=== PATIENT | male | born 1950 ===

== ENCOUNTER 2023-04-22 04:23 | Day surgery (SDC) | payer OTHER ==
[2023-04-21 12:52] VITALS: BMI 23.9
[2023-04-22] MEDS ORDERED: LIDOCAINE HCL 1%, 10 MG/ML (10ML VIAL) MDV ONE (08:13)
[2023-04-22] MEDS ORDERED: BUPIVACAINE HCL/PF 0.5% (5MG/ML) 10 ML VIAL ONE (08:13)
[2023-04-22] MEDS ORDERED: ONDANSETRON 4 MG/2 ML VIAL IVPUSH PRN ×2 (08:48→10:53)
[2023-04-22] MEDS ORDERED: PROMETHAZINE HCL 25 MG/1 ML VIAL IVPB PRN (08:48)
[2023-04-22] MEDS ORDERED: LACTATED RINGERS SOLUTION 1,000 ML IV SCH ×2 (09:00→11:00)
[2023-04-22] MEDS ORDERED: SUCCINYLCHOLINE CHLORIDE 200 MG/10 ML SYRINGE ONE (09:09)
[2023-04-22] MEDS ORDERED: PROPOFOL 40 ML ONE (09:09)
[2023-04-22] MEDS ORDERED: ceFAZolin SODIUM 1 GM VIAL IVPB ONE (09:20)
[2023-04-22] MEDS ORDERED: BUPIVACAINE HCL/PF 0.5% (5 MG/ML) 30 ML VIAL IJ ONE (09:31)
[2023-04-22] MEDS ORDERED: LIDOCAINE HCL 1%, 10 MG/ML (50 mL VIAL) INF ONE (09:31)
[2023-04-22] MEDS ORDERED: oxyCODONE HCL 5 MG TABLET PO PRN (10:53)
[2023-04-22 12:08] VITALS: TEMP 97
[2023-04-22 12:13] VITALS: BP 154/78; PULSE 69; RESP 20
== END 2023-04-22 12:30 | disposition home or self-care (01) ==
LOC: JASU-SURG 04:23
PROVIDERS: ATTEND Orthopaedic Surgery
PROC: 0LB50ZZ Excision of Right Lower Arm and Wrist Tendon, Open Approach (ICD-10-PCS; 2023-04-22)
PROC: 01N50ZZ Release Median Nerve, Open Approach (ICD-10-PCS; principal; 2023-04-22 09:00)
PROC: 01S40ZZ Reposition Ulnar Nerve, Open Approach (ICD-10-PCS; 2023-04-22 09:00)
DX: G56.21 Lesion of ulnar nerve, right upper limb (principal); G56.01 Carpal tunnel syndrome, right upper limb
CPT/HCPCS: 82962; 88304-TC; 94760